=== PATIENT | female | born 1985 | race Caucasian/White ===

== ENCOUNTER 2023-06-12 10:18 | Emergency (ER) | payer OTHER ==
[~2023-06-12] VITALS: Ht 165.1 cm; Wt 73.9 kg
[2023-06-12 10:59] VITALS: BP 132/97; PULSE 90; RESP 16; TEMP 98.2; O2SAT 99
[2023-06-12 11:41] VITALS: BP 130/96; PULSE 80; RESP 16; O2SAT 99
== END 2023-06-12 11:41 | disposition home or self-care (01) ==
LOC: MED 10:18
DX: R00.2 Palpitations (principal); F43.9 Reaction to severe stress, unspecified; F41.9 Anxiety disorder, unspecified; Z79.899 Other long term (current) drug therapy
CPT/HCPCS: 93005; 99283